=== PATIENT | female | born 1995 | race Caucasian/White ===

== ENCOUNTER 2020-12-20 11:14 | Emergency (ER) | payer SELFPAY ==
[~2020-12-20] VITALS: Ht 160 cm; Wt 60.0 kg
[2020-12-20] MEDS ORDERED: ACETAMINOPHEN 500MG TABLET PO ONE (12:15)
[2020-12-20 14:00] VITALS: BP 119/85
== END 2020-12-20 14:02 | disposition home or self-care (01) ==
LOC: ER 11:28
DX: S00.93XA Contusion of unspecified part of head, initial encounter (principal); V49.50XA Passenger injured in collision with unspecified motor vehicles in traffic accident, initial encounter; Y93.89 Activity, other specified; Y92.89 Other specified places as the place of occurrence of the external cause; Y99.8 Other external cause status
CPT/HCPCS: 81025; 99284